=== PATIENT | female | born 1965 | race Caucasian/White ===

== ENCOUNTER 2022-05-20 18:30 | Observation (INO) | payer BC ==
[2022-05-20] MEDS ORDERED: Meclizine HCl 25 MG TAB ONE (19:11)
[2022-05-20] MEDS ORDERED: Ondansetron PF 4 MG/2 ML Vial ONE (19:11)
[2022-05-20] MEDS ORDERED: Promethazine HCl 12.5 MG in Sodium Chloride 0.9% 50 ML IVPB SCH (19:30)
[2022-05-20 19:46] LABS: #Lymphocytes 0.2 thou/uL (1.20-3.40); #Monocytes 0.6 thou/uL (0.11-0.59); #Neutrophils 6.1 thou/uL (1.40-6.50); %Basophils 0.3 % (0.0-1.0); %Lymphocytes 3.2 % (21.0-51.0); %Monocytes 8.3 % (0.0-10.0); %Neutrophils 88.2 % (42.0-75.0); Hemoglobin 12.8 g/dL (12.0-16.0); Mean Corpuscular HGB CONC 32.2 g/dL (32.0-36.0); Mean Platelet Volume 7.3 fL (7.4-10.4); Platelet Count 249 10x3/uL (130-400); RBC Distribution Width 11.8 % (11.5-14.5); Red Blood Cell (RBC) Count 4.25 mill/uL (4.20-5.40); White Blood Cell (WBC) Count 6.9 10x3/uL (4.8-10.8)
[2022-05-20 20:08] LABS: ALT (SGPT) 28 U/L (8-55); AST (SGOT) 32 U/L (5-34); Albumin 4.2 g/dL (3.5-5.0); Alkaline Phosphatase 68 U/L (40-110); Anion Gap 15 mmol/L (10-20); BUN (Urea Nitrogen) 15 mg/dL (9.8-20.1); Bilirubin, Total 0.4 mg/dL (0.2-1.2); Calc. Creatinine Clearance 0 mL/min (70-130); Calcium 8.7 mg/dL (7.8-10.44); Carbon Dioxide 22 mmol/L (22-29); Chloride 101 mmol/L (98-107); Estimated GFR 70; Globulin 2.4 g/dL (2.4-3.5); Glucose 102 mg/dL (70-105); Potassium 3.5 mmol/L (3.5-5.1); Protein, Total 6.6 g/dL (6.0-8.3); Sodium 134 mmol/L (136-145)
[2022-05-20] MEDS ORDERED: Acetaminophen 500 MG TAB ONE (20:43)
[2022-05-20] MEDS ORDERED: diphenhydrAMINE 50 MG/ML VIAL ONE (20:44)
[2022-05-20] MEDS ORDERED: Aspirin 325 MG TAB ONE (21:51)
[2022-05-20] MEDS ORDERED: Acetaminophen 650 MG Suppository PR PRN (22:56)
[2022-05-20] MEDS ORDERED: Ondansetron PF 4 MG/2 ML Vial IVP PRN (22:56)
[2022-05-20] MEDS ORDERED: hydrALAZINE 20 MG/ML VIAL SLOW IVP PRN (22:56)
[2022-05-20] MEDS ORDERED: Ondansetron ODT 4 MG TAB PO PRN (22:56)
[2022-05-21 00:06] VITALS: BMI 29.6
[2022-05-21] MEDS ORDERED: Meclizine HCl 12.5 MG TAB PO PRN (02:42)
[2022-05-21 04:37] LABS: #Lymphocytes 0.9 thou/uL (1.20-3.40); #Monocytes 0.5 thou/uL (0.11-0.59); #Neutrophils 3.8 thou/uL (1.40-6.50); %Basophils 0.4 % (0.0-1.0); %Eosinophils 0.5 % (0.0-10.0); %Lymphocytes 17.9 % (21.0-51.0); %Monocytes 8.7 % (0.0-10.0); %Neutrophils 72.5 % (42.0-75.0); Hemoglobin 12.4 g/dL (12.0-16.0); Mean Corpuscular Hemoglobin 31.5 pg (27.0-31.0); Mean Corpuscular Volume 95.5 fl (78.0-98.0); Mean Platelet Volume 7.5 fL (7.4-10.4); Platelet Count 230 10x3/uL (130-400); RBC Distribution Width 11.7 % (11.5-14.5); Red Blood Cell (RBC) Count 3.93 mill/uL (4.20-5.40); White Blood Cell (WBC) Count 5.2 10x3/uL (4.8-10.8)
[2022-05-21 05:05] LABS: Anion Gap 14 mmol/L (10-20); BUN (Urea Nitrogen) 12 mg/dL (9.8-20.1); Calc. Creatinine Clearance 84 mL/min (70-130); Calcium 8.3 mg/dL (7.8-10.44); Carbon Dioxide 23 mmol/L (22-29); Chloride 103 mmol/L (98-107); Cholesterol 161 mg/dl (< 200 Desired); Estimated GFR 73; Glucose 84 mg/dL (70-105); HDL Cholesterol 54 mg/dL (>60 Neg Risk); LDL Cholesterol, Calculated 97 mg/dL; Potassium 3.5 mmol/L (3.5-5.1); Sodium 136 mmol/L (136-145); Triglycerides 48 mg/dL (Less than 150)
[2022-05-21] MEDS: Aspirin 81 mg Enteric Coated Tablet PO SCH (08:17)
[2022-05-21] MEDS: Acetaminophen 325 MG TAB PO PRN ×2 (08:17→13:08)
[2022-05-21 08:27] LABS: Free T4 (Free Thyroxine) 1.05 ng/dL (0.70-1.48)
[2022-05-21] MEDS ORDERED: Iopamidol-370 76% 500 ML 1 ML ONE (09:21)
[2022-05-21 13:54] LABS: Hemoglobin A1c 5.4 % (4.0-6.0)
[2022-05-21 14:08] LABS: Cardiac Risk 2.9 (Less than 4.5)
[2022-05-21] MEDS: Famotidine 20 MG TAB PO SCH (20:10)
[2022-05-21] MEDS: Trospium 20 MG TAB PO SCH (20:10)
[2022-05-21] MEDS ORDERED: Enoxaparin Sodium 40 MG/0.4 ML SYRINGE SC SCH (21:00)
[2022-05-22] MEDS ORDERED: guaiFENesin 200 MG TAB PO PRN (02:19)
[2022-05-22 05:06] LABS: #Eosinphils 0.1 thou/uL (0.0-0.7); #Lymphocytes 1.4 thou/uL (1.20-3.40); #Monocytes 0.5 thou/uL (0.11-0.59); #Neutrophils 1.8 thou/uL (1.40-6.50); %Basophils 0.9 % (0.0-1.0); %Eosinophils 3.1 % (0.0-10.0); %Lymphocytes 37.6 % (21.0-51.0); %Monocytes 12.2 % (0.0-10.0); %Neutrophils 46.2 % (42.0-75.0); Hemoglobin 13.2 g/dL (12.0-16.0); Mean Corpuscular HGB CONC 31.6 g/dL (32.0-36.0); Mean Corpuscular Hemoglobin 30.1 pg (27.0-31.0); Mean Corpuscular Volume 95.2 fl (78.0-98.0); Platelet Count 238 10x3/uL (130-400); RBC Distribution Width 11.8 % (11.5-14.5); Red Blood Cell (RBC) Count 4.41 mill/uL (4.20-5.40); White Blood Cell (WBC) Count 3.8 10x3/uL (4.8-10.8)
[2022-05-22 05:29] LABS: ALT (SGPT) 23 U/L (8-55); AST (SGOT) 22 U/L (5-34); Albumin 3.7 g/dL (3.5-5.0); Alkaline Phosphatase 61 U/L (40-110); Anion Gap 13 mmol/L (10-20); BUN (Urea Nitrogen) 15 mg/dL (9.8-20.1); Bilirubin, Total 0.2 mg/dL (0.2-1.2); Calc. Creatinine Clearance 86 mL/min (70-130); Calcium 8.5 mg/dL (7.8-10.44); Carbon Dioxide 23 mmol/L (22-29); Chloride 104 mmol/L (98-107); Estimated GFR 75; Globulin 2.9 g/dL (2.4-3.5); Glucose 80 mg/dL (70-105); Phosphorus 2.7 mg/dL (2.3-4.7); Potassium 3.9 mmol/L (3.5-5.1); Protein, Total 6.6 g/dL (6.0-8.3); Sodium 136 mmol/L (136-145)
[2022-05-22 08:28] VITALS: BP 114/77; TEMP 98.5
[2022-05-22] MEDS: Trospium 20 MG TAB PO SCH (09:32)
[2022-05-22] MEDS: Famotidine 20 MG TAB PO SCH (09:32)
[2022-05-22] MEDS: Aspirin 81 mg Enteric Coated Tablet PO SCH (09:32)
[2022-05-22 10:04] LABS: pH, Urine 6.5 (5.0-9.0)
[2022-05-22 10:19] LABS: Clarity Hazy (Clear); Ketone, Urine Unable to Interpret mg/dL (Negative); Leukocyte Unable to Interpret (Negative); Nitrite Unable to Interpret (Negative); Protein, Urine (Dipstick) Unable to Interpret mg/dL (Neg-Trace)
[2022-05-22 10:20] LABS: Bilirubin Unable to Interpret (Negative); Blood, Urine Unable to Interpret (Negative); CAUTI Indications for Culture Immunosuppressed; Urobilinogen UNABLE TO INTERPRET mg/dL (Less than 2)
[2022-05-22 10:23] LABS: Urine Culture Reflex Yes Yes
[2022-05-22 10:24] LABS: Glucose, Urine (Dipstick) Unable to Interpret mg/dL (Negative)
[2022-05-22] MEDS ORDERED: Amoxicillin/Potassium Clav 875 MG TAB PO SCH (21:00)
== END 2022-05-22 12:06 | disposition home or self-care (01) ==
LOC: ERS 18:30 → 2NO 21:56
PROVIDERS: ADMIT Internal Medicine; ATTEND Internal Medicine
DX: R42 Dizziness and giddiness (principal); I10 Essential (primary) hypertension; E03.9 Hypothyroidism, unspecified; M25.78 Osteophyte, vertebrae; I08.3 Combined rheumatic disorders of mitral, aortic and tricuspid valves; Z79.890 Hormone replacement therapy; Z79.899 Other long term (current) drug therapy; Z98.1 Arthrodesis status; Z20.822 Contact with and (suspected) exposure to COVID-19
CPT/HCPCS: 36415; 70450; 70496; 70498; 72125; 80048; 80053; 80061; 81001; 82533; 83036; 83735; 84100; 84439; 84443; 84481; 84484; 85025; 87077; 87086; 87186; 87631; 87804; 93306; 96372; 96374; 96375; G0378; J1200; J1650; J2405; J2550; Q9967; U0003; U0005